=== PATIENT | female | born 1950 | race Caucasian/White ===

== ENCOUNTER 2018-10-11 00:32 | Emergency (ER) | payer MEDICARE, OTHER ==
[~2018-10-11] VITALS: Ht 157.5 cm; Wt 85.0 kg
[~2018-10-11 00:32] MED LIST: ADVAIR DISK1 INH; ADVAIR HF1; ADVAIR HF1 IN; ASPIRIN81 MG PO; B-COMPLEX-C PO; CELEBREX200 MG PO; COQ-10100 MG PO; D32000 UNI1 PO; FISH OIL1000 MG PO; FLOVENT HFA110 MCG IN; FLUTICASONE50 MCG NAB; GABAPENTIN100 MG PO; LIPITOR10 MG PO; LOPRESSOR25 MG PO; LUTEIN20 MG PO; MAGNESIUM-OX400 MG PO; METOPROL TAR25 M1 PO; OSCAL 500/1 TAB PO; PROBIOTIC1 TAB PO; RHINOCORT; SALAGEN7.5 MG PO; VICOPROFEN PO; VITAMIN B-121000 MCG PO
[2018-10-11] MEDS ORDERED: MAG OXIDE400 MG PO (01:08)
[2018-10-11] MEDS ORDERED: ADVAIR HF2 IN (01:14)
[2018-10-11] MEDS ORDERED: PERCOCET 5/325M1 TAB PO (02:23)
[2018-10-11 03:21] VITALS: BP 174/74
== END 2018-10-11 03:16 | disposition home or self-care (01) ==
LOC: ED 00:32
PROC: 2W3BXYZ Immobilization of Left Upper Arm using Other Device (ICD-10-PCS; principal; 2018-10-11)
DX: S42.022A Displaced fracture of shaft of left clavicle, initial encounter for closed fracture (principal); I10 Essential (primary) hypertension; W18.30XA Fall on same level, unspecified, initial encounter; Y92.009 Unspecified place in unspecified non-institutional (private) residence as the place of occurrence of the external cause

== ENCOUNTER → 2018-10-28 | Outpatient (REF) | payer MEDICARE, OTHER ==
[~2018-10-28] MED LIST changes: +ADVAIR HF2 IN; +MAG OXIDE400 MG PO; +PERCOCET 5/325M1 TAB PO
[2018-10-28 09:46] LABS: HEMATOCRIT 40.9 % (37.0-47.0); HEMOGLOBIN 13.5 g/dl (12.0-16.0); IMMATURE GRANULOCYTES 0.2 % (0.0-5.0); MEAN CELL VOLUME 94.5 fL CALC (80.0-100.0); MEAN CORPUSCULAR HGB 31.2 pG CALC (26.0-32.0); NEUT# 1.94 thou/uL (2.00-7.15); RED BLOOD COUNT 4.33 mill/uL (4.20-5.60); RED CELL DISTRI WIDTH 13.2 % (11.5-15.5)
[2018-10-28 11:54] LABS: ALBUMIN 3.9 g/dL (3.2-5.0); ALKALINE PHOSPHATASE 72 u/l (38-126); ANION GAP 15 (6-22 (CALC)); BILIRUBIN, TOTAL 0.6 mg/dL (0.0-1.4); BUN 20 mg/dL (8-23); BUN/CREATININE RATIO 26 (12-20 (CALC)); CALCULATED LDLCHOLESTEROL 99 mg/dL (62-129 (CALC)); CARBON DIOXIDE 29 mmol/l (22-30); CHLORIDE 100 mmol/l (95-108); CHOLESTEROL HDL RATIO 5.3 (<4.4 (CALC)); CREATININE 0.8 mg/dL (0.5-1.0); GFR > 60 ML/MIN (>=60 (CALC)); GFR FOR AFR.AMER. > 60 ML/MIN (>=60 (CALC)); HDL CHOLESTEROL 28 mg/dL (>=40); POTASSIUM 4.5 mmol/l (3.5-5.1); SGOT/AST 27 u/l (9-36); SODIUM 140 mmol/l (137-146); TOTAL CHOLESTEROL 150 mg/dl (0-199); TOTAL PROTEIN 8.6 g/dL (6.3-8.2); TOTAL TRIGLYCERIDES 116 mg/dl (30-149); VLDL CHOLESTROL 23 mg/dl (1-41 (CALC))
[2018-10-28 12:22] LABS: TSH, 3RD GENERATION 1.46 uIU/mL (0.47 - 4.68)
== END | disposition home or self-care (01) ==
LOC: LAB 08:01
PROVIDERS: ATTEND Nurse Practitioner Family
DX: E78.49 Other hyperlipidemia (principal); I10 Essential (primary) hypertension

== ENCOUNTER 2019-07-05 12:25 | Emergency (ER) | payer MEDICARE, OTHER ==
[~2019-07-05] VITALS: Ht 157.5 cm; Wt 86.0 kg
[2019-07-05 14:34] VITALS: BP 142/83
== END 2019-07-05 14:43 | disposition home or self-care (01) ==
LOC: ED 12:25
PROC: 0HQ1XZZ Repair Face Skin, External Approach (ICD-10-PCS; principal; 2019-07-05)
DX: S01.81XA Laceration without foreign body of other part of head, initial encounter (principal); W01.198A Fall on same level from slipping, tripping and stumbling with subsequent striking against other object, initial encounter; Y92.009 Unspecified place in unspecified non-institutional (private) residence as the place of occurrence of the external cause

== ENCOUNTER 2019-09-24 11:57 | Observation (INO) | payer MEDICARE, OTHER ==
[~2019-09-24] VITALS: Ht 157.5 cm; Wt 75.9 kg
--- NOTE | 2019-09-24 11:57 | NUR ---
ARRIVES ALERT ADN ORIENTED IN NO DISTRESS WITH EMS VIA STRETCHER .
[2019-09-24 13:16] LABS: HEMATOCRIT 40.3 % (37.0-47.0); HEMOGLOBIN 13.4 g/dl (12.0-16.0); IMMATURE GRANULOCYTES 0.3 % (0.0-5.0); MEAN CORPUSCULAR HGB 30.6 pG CALC (26.0-32.0); MEAN CORPUSCULAR HGB CONC 33.3 g/L CALC (32.0-36.0); NEUT# 1.47 thou/uL (2.00-7.15); RED BLOOD COUNT 4.38 mill/uL (4.20-5.60); RED CELL DISTRI WIDTH 13.7 % (11.5-15.5)
[2019-09-24 13:20] LABS: ACT PARTIAL THROMBO TIME 30.2 SECONDS (20.0-32.5); INTERNATIONAL NORMALIZED RATIO 1.1 RATIO (0.7-1.3); PROTHROMBIN TIME 11.2 SECONDS (9.0-12.5)
--- NOTE | 2019-09-24 13:20 | NUR ---
PT ALERT AND RESPONSIVE IN NO DISTRESS WITH NO DEFICITS.PT TO CT VIA STRETCHER
--- NOTE | 2019-09-24 13:56 | NUR ---
PT RESTING ON STRETCHER AWAITING RESULTS. WARM BLANKET GIVEN
[2019-09-24 14:07] LABS: ALBUMIN 3.8 g/dL (3.2-5.0); ALKALINE PHOSPHATASE 62 u/l (38-126); ANION GAP 14 (6-22 (CALC)); BILIRUBIN, TOTAL 0.8 mg/dL (0.0-1.4); BUN 16 mg/dL (8-23); BUN/CREATININE RATIO 21 (12-20 (CALC)); CARBON DIOXIDE 26 mmol/l (22-30); CHLORIDE 102 mmol/l (95-108); CREATININE 0.8 mg/dL (0.5-1.0); GFR > 60 ML/MIN (>=60 (CALC)); GFR FOR AFR.AMER. > 60 ML/MIN (>=60 (CALC)); POTASSIUM 4.5 mmol/l (3.5-5.1); SGOT/AST 35 u/l (9-36); SODIUM 137 mmol/l (137-146); TOTAL PROTEIN 8.9 g/dL (6.3-8.2)
--- NOTE | 2019-09-24 14:42 | NUR ---
ORTHOSTATIC BP 58 167/95 LYING 65 168/96 SITTING 68 175/92 STANDING PT REPORTS NO COMPLAINTS OF DIZZINESS OR WEAKNESS
--- NOTE | 2019-09-24 15:36 | NUR ---
PT REPORTS FEELING "A BIT DIZZY AND SLIGHT HEADACHE" PT BELIEVES THIS IS DUE TO NOT EATING ALL DAY. PT GIVEN WATER AND JUICE. INSTRUCTED TO CALL WITH ANY CHANGES. NEURO EXAM REMAINS UNCHANGED.
--- NOTE | 2019-09-24 16:28 | NUR ---
PT REPORTS CONTINUED SLIGHT HEADACHE BUT FEELING BETTER AFTER JUICE. LIGHTS DIMMED FOR PATIENT COMFORT
--- NOTE | 2019-09-24 16:40 | NUR ---
PT ASSISTED TO BEDSIDE COMMODE. VOIDED URING OBTAINED. DAUGHTER EXPRESSED FRUSTRATION IN THAT THERE WOULD NOT BE IMMEDIATE RESULTS. PT HAD EXPRESSED NO DESIRE TO VOID PRIOR TO THIS TIME. DAUGHTER REASSURED THAT THE URINE WOULD BE WALKED IMMEDIATELY TO THE LAB
[2019-09-24 16:45] LABS: URINE BILIRUBIN - DIPSTICK NEGATIVE (NEGATIVE); URINE BLOOD DIPSTICK NEGATIVE (NEGATIVE); URINE COLOR YELLOW; URINE GLUCOSE - DIPSTICK NEGATIVE (NEGATIVE); URINE KETONE NEGATIVE (NEGATIVE); URINE LEUK ESTERASE NEGATIVE (NEGATIVE); URINE NITRITE - DIPSTICK NEGATIVE (Negative); URINE PH 5.5 (4.5-8.0); URINE PROTEIN - DIPSTICK TRACE mg/dL (NEG-TRACE); URINE UROBILINOGEN - DIPSTICK 0.2 E.U./dL (0.2)
--- NOTE | 2019-09-24 17:30 | NUR ---
PT MEDICATED FOR ELEVATED BP.
--- NOTE | 2019-09-24 17:40 | NUR ---
PT AWAITING ADMISSION. NO COMPLAINTS AT THIS TIME
--- NOTE | 2019-09-24 18:15 | NUR ---
PT ASSISTED TO BEDSIDE COMMODE. RETURNED TO STRETCHER. MONITORS APPLIED.
[2019-09-24] MEDS ORDERED: HYDROCHLOROT25 MG PO (18:19)
[2019-09-24] MEDS ORDERED: VALSARTAN160 MG PO (18:21)
[2019-09-24] MEDS ORDERED: BYSTOLIC20 MG PO (18:22)
[2019-09-24] MEDS ORDERED: TRELEGY ELLIPTA1 AER IN (18:22)
[2019-09-24] MEDS ORDERED: FAMOTIDINE20 M1 PO (18:23)
--- NOTE | 2019-09-24 18:26 | NUR ---
PAYTON REC COMPLETED OVER THE PHONE WITH PTS DAUGHTER MAGGIE
--- NOTE | 2019-09-24 18:32 | NUR ---
BP NOTED TO BE ELEVATED. BP REPEATED AND CONTINUES TO BE ELEVATED. HOSPITALIST INVESTIGATION LIEUTENANT PAGED
--- NOTE | 2019-09-24 19:40 | NUR ---
REPORT CALLED TO CAPRICE FENTON. MED SURG.
--- NOTE | 2019-09-24 19:41 | NUR ---
PT UP TO BEDSIDE COMMODE WITH ASSISTANCE
--- NOTE | 2019-09-24 19:46 | NUR ---
SP NOTED TO BE ELEVATED. MANUAL BP TAKEN 207/100. PAGE PLACED TO HOSPITALIST FIELD LOGISTICS COORDINATOR
--- NOTE | 2019-09-24 19:48 | NUR ---
PT. TAKEN TO [facility], NO C/O.
[2019-09-24 20:15] VITALS: BP 161/90
[2019-09-24 20:20] VITALS: BP 211/81
[2019-09-24 20:25] VITALS: BP 180/94
--- NOTE | 2019-09-24 20:43 | NUR ---
- PT. ARRIVED TO THE FLOOR VIA STRETCHER ACCOMPANIED BY ER NURSE. PT. WITH UNSTEADY GAIT AND VOIDED IN BSC AND ASSISTED BACK INTO BED. ORIENTED TO CALL LIGHT, ROOM, AND POC; VERBALIZES UNDERSTANDING. ADMISSION ASSESSMENT COMPLETED. TELEMETRY BOX IN PLACE. IV SITE PATENT AND ORDERED IVF HUNG.ORTHOSTATIC B/P AND PULSE OBTAINED; PT. B/P ELEVATED AND MEDICATED WITH SCHEDULED COZAAR; WILL CONTINUE TO MONITOR. PT. IS INSTRUCTED TO CALL FOR EVERY OOB NEEDS AND NOT TO GET OOB ALONE AND VERBALIZES UNDERSTANDING. BED ALARM SET FOR SAFETY. C/O PARRY AND MEDICATED WITH ORDERED TYLENOL.
[2019-09-25] VITALS (9 sets, daily range): BP systolic 120–194; BP diastolic 64–98
--- NOTE | 2019-09-25 00:08 | NUR ---
B/P 180/86 AND MEDICATED WITH ORDERED PRN CLONIDINE, WILL REASSESS.
--- NOTE | 2019-09-25 02:08 | NUR ---
RESTING IN BED WITH EYES CLOSED; RESP. EVEN AND UNLABORED.
--- NOTE | 2019-09-25 05:51 | NUR ---
RESTING IN BED WITH EYES CLOSED; RESP. EVEN AND UNLABORED. CALL LIGHT IS IN REACH.
--- NOTE | 2019-09-25 08:00 | NUR ---
PT RESTING IN BED, NO SIGNS OF DISTRESS NOTED, RESP EVEN AND UNLABORED. PT ALERT AND ORIENTED X3, DISCUSSED POC, PT AGREES TO DO ORTHOSTATIC BP'S. PT TOLERATED WELL. ASSESSMENT COMPLETED, CALL LIGHT IN REACH,CONTINUE TO MONITOR.
--- NOTE | 2019-09-25 10:30 | NUR ---
PT RESTING IN BED, BP ELEVATED DISCUSSED CLONIDINE, DAUGHTER AT BEDSIDE UPSET REGARDING PT'S BP STATES SHE NEEDS TO BE DISCHARGED AND NEEDS TO TAKE HER OWN NON-GENERIC BP MEDS AT HOME. DISCUSSED POC WITH DAUGHTER INFORMED HER THAT IF SHE WANTED HER TO LEAVE RIGHT NOW THE PT COULD SIGN AMA, PT DECLINED STATES SHE WANTS TO STAY AND WAIT FOR THE DR AND THAT DAUGHTER NEEDS TO HAVE A SEAT. PT TOOK CLONIDINE WILL RECHECK BP IN 1 HR. CALL LIGHT IN REACH,CONTINUE TO MONITOR.
--- NOTE | 2019-09-25 12:37 | NUR ---
BP REMAINS ELEVATED, RN AT BEDSIDE GIVING IV APRESOLINE
--- NOTE | 2019-09-25 14:50 | NUR ---
AND SADA AT BEDSIDE TO DISCUSS POC
[2019-09-25] MEDS ORDERED: DOXYCYCL HYC100 MG PO (15:03)
--- NOTE | 2019-09-25 15:27 | NUR ---
Discharge instructions given. Patient verbalizes understanding of same. Discharged in stable condition via Wheelchair to Home with family. All belongings sent with pt.
== END 2019-09-25 15:28 | disposition home or self-care (01) ==
LOC: ED 11:57 → ED-I 14:13 → ED 14:13 → ED-I 17:14 → ED 17:38 → MS2 17:39
PROVIDERS: Emergency Medicine; ADMIT Internal Medicine; ATTEND Internal Medicine
DX: R55 Syncope and collapse (principal); I16.0 Hypertensive urgency; J32.9 Chronic sinusitis, unspecified; I10 Essential (primary) hypertension; I69.931 Monoplegia of upper limb following unspecified cerebrovascular disease affecting right dominant side; M35.00 Sjogren syndrome, unspecified; I25.2 Old myocardial infarction
CPT/HCPCS: G0378

== ENCOUNTER 2021-08-24 13:47 | Emergency (ER) | payer MEDICARE, OTHER ==
[~2021-08-24] VITALS: Ht 157.5 cm; Wt 72.0 kg
[~2021-08-24 13:47] MED LIST changes: +BYSTOLIC20 MG PO; +DOXYCYCL HYC100 MG PO; +FAMOTIDINE20 M1 PO; +HYDROCHLOROT25 MG PO; +TRELEGY ELLIPTA1 AER IN; +VALSARTAN160 MG PO
[2021-08-24 15:09] LABS: HEMATOCRIT 40.1 % (37.0-47.0); HEMOGLOBIN 12.9 g/dl (12.0-16.0); IMMATURE GRANULOCYTES 0.2 % (0.0-5.0); MEAN CORPUSCULAR HGB 32.8 pG CALC (26.0-32.0); MEAN CORPUSCULAR HGB CONC 32.2 g/dL CAL (32.0-36.0); NEUT# 3.64 thou/uL (2.00-7.15); RED BLOOD COUNT 3.93 mill/uL (4.20-5.60)
[2021-08-24 15:32] LABS: ALBUMIN 3.5 g/dL (3.2-5.0); ALKALINE PHOSPHATASE 72 u/l (38-126); BUN 18 mg/dL (8-23); BUN/CREATININE RATIO 18 (12-20 (CALC)); CHLORIDE 109 mmol/l (95-108); GFR 55 ML/MIN (>=60 (CALC)); GFR FOR AFR.AMER. > 60 ML/MIN (>=60 (CALC)); POTASSIUM 4.5 mmol/l (3.5-5.1); SGOT/AST 29 u/l (9-36); SODIUM 138 mmol/l (137-146); TOTAL PROTEIN 8.7 g/dL (6.3-8.2)
[2021-08-24 15:34] LABS: ANION GAP 14 (6-22 (CALC)); BILIRUBIN, TOTAL 0.9 mg/dL (0.0-1.4); CARBON DIOXIDE 20 mmol/l (22-30)
[2021-08-24 15:37] LABS: URINE BILIRUBIN - DIPSTICK NEGATIVE (NEGATIVE); URINE BLOOD DIPSTICK NEGATIVE (NEGATIVE); URINE COLOR YELLOW; URINE GLUCOSE - DIPSTICK NEGATIVE (NEGATIVE); URINE KETONE NEGATIVE (NEGATIVE); URINE LEUK ESTERASE TRACE (NEGATIVE); URINE PROTEIN - DIPSTICK NEGATIVE (NEG-TRACE); URINE UROBILINOGEN - DIPSTICK 0.2 E.U./dL (0.2)
[2021-08-24 15:38] LABS: URINE NITRITE - DIPSTICK NEGATIVE (Negative)
[2021-08-24 15:42] LABS: LIPASE 185 u/l (23-300); MYOGLOBIN 110 ng/mL (0 - 62)
[2021-08-24 16:00] VITALS: BP 128/88
[2021-08-24 17:19] LABS: INTERNATIONAL NORMALIZED RATIO 1.1 RATIO (0.7-1.3); PROTHROMBIN TIME 11.3 SECONDS (9.0-12.5)
== END 2021-08-24 18:20 | disposition home or self-care (01) ==
LOC: ED 13:47
PROVIDERS: Family Medicine
DX: R55 Syncope and collapse (principal); I10 Essential (primary) hypertension; I25.2 Old myocardial infarction; Z86.73 Personal history of transient ischemic attack (TIA), and cerebral infarction without residual deficits
CPT/HCPCS: Q9967

== ENCOUNTER 2021-09-15 10:14 | Emergency (ER) | payer MEDICARE, OTHER ==
[~2021-09-15] VITALS: Ht 157.5 cm; Wt 70.0 kg
[2021-09-15 10:48] VITALS: BP 111/59
== END 2021-09-15 10:48 | disposition home or self-care (01) ==
LOC: ED 10:14
DX: R04.0 Epistaxis (principal); M35.00 Sjogren syndrome, unspecified; I10 Essential (primary) hypertension; I25.2 Old myocardial infarction; Z86.73 Personal history of transient ischemic attack (TIA), and cerebral infarction without residual deficits

== ENCOUNTER 2022-06-18 17:20 | Emergency (ER) | payer MEDICARE, OTHER ==
[2022-06-22] MEDS ORDERED: ASPIRIN81 MG PO (05:20)
== END 2022-06-18 18:43 | disposition left against medical advice (07) ==
LOC: ED 17:20 → LWOBS 18:43
DX: Z53.21 Procedure and treatment not carried out due to patient leaving prior to being seen by health care provider (principal)

== ENCOUNTER 2022-07-31 16:34 | Observation (INO) | payer MEDICARE, OTHER ==
[2022-07-31] VITALS (9 sets, daily range): BP systolic 106–135; BP diastolic 68–84
[~2022-07-31] VITALS: Ht 157.5 cm; Wt 57.1 kg
--- NOTE | 2022-07-31 16:50 | NUR ---
PT TO ROOM VIA EMS.
[2022-07-31] MEDS ORDERED: NORVASC5 M1 PO (17:25)
[2022-07-31 18:57] LABS: HEMATOCRIT 38.7 % (37.0-47.0); HEMOGLOBIN 13.4 g/dl (12.0-16.0); MEAN CELL VOLUME 93.9 fL CALC (80.0-100.0); MEAN CORPUSCULAR HGB 32.5 pG CALC (26.0-32.0); MEAN CORPUSCULAR HGB CONC 34.6 g/dL CAL (32.0-36.0); NEUT# 3.35 thou/uL (2.00-7.15); RED BLOOD COUNT 4.12 mill/uL (4.20-5.60); RED CELL DISTRI WIDTH 14.4 % (11.5-15.5)
[2022-07-31 19:06] LABS: ALBUMIN 3.6 g/dL (3.2-5.0); ALKALINE PHOSPHATASE 95 u/l (38-126); ANION GAP 12 (6-22 (CALC)); BILIRUBIN, TOTAL 0.9 mg/dL (0.0-1.4); BUN 30 mg/dL (8-23); BUN/CREATININE RATIO 36 (12-20 (CALC)); CARBON DIOXIDE 24 mmol/l (22-30); CHLORIDE 103 mmol/l (95-108); CREATININE 0.8 mg/dL (0.5-1.0); GFR FOR AFR.AMER. > 60 ML/MIN (>=60 (CALC)); GFR OTHER RACES > 60 ML/MIN (>=60 (CALC)); POTASSIUM 3.9 mmol/l (3.5-5.1); SGOT/AST 56 u/l (9-36); SODIUM 136 mmol/l (137-146); TOTAL PROTEIN 8.2 g/dL (6.3-8.2)
[2022-07-31 19:08] LABS: INTERNATIONAL NORMALIZED RATIO 1.1 RATIO (0.7-1.3); PROTHROMBIN TIME 10.8 SECONDS (9.0-12.5)
--- NOTE | 2022-07-31 19:15 | NUR ---
ASSUMED CARE OF PT. PER DAY RN NO IV AT THIS TIME. PT COMFORTABLE. NAD.
[2022-07-31 19:25] LABS: URINE BILIRUBIN - DIPSTICK NEGATIVE (NEGATIVE); URINE BLOOD DIPSTICK TRACE-INTACT (NEGATIVE); URINE COLOR YELLOW; URINE GLUCOSE - DIPSTICK NEGATIVE (NEGATIVE); URINE KETONE NEGATIVE (NEGATIVE); URINE PROTEIN - DIPSTICK NEGATIVE (NEG-TRACE); URINE SPECIFIC GRAVITY 1.025; URINE UROBILINOGEN - DIPSTICK 0.2 E.U./dL (0.2)
[2022-07-31 19:31] LABS: URINE LEUK ESTERASE SMALL (NEGATIVE); URINE NITRITE - DIPSTICK NEGATIVE (Negative)
[2022-07-31 19:37] LABS: URINE RBC 0-2 RBC/hpf (0-5); URINE SQUAMOUS EPITHELIAL CELL FEW EPI/hpf (0-FEW)
--- NOTE | 2022-07-31 20:15 | NUR ---
PT TRANSFERRED TO [facility]
--- NOTE | 2022-07-31 21:10 | NUR ---
PT WAS BROUGHT UP BY ER IN STRETCHER. PT WAS A X2 ASSIST TO AMBULATE FROM STRETCHER TO BED, GAIT UNSTEADY. PT IS A/OX3. 22G IV IN THE RFA APPEARS HEALTHY AND HAS BLOOD RETURN. PT IS ON OXYGEN FOR COMFORT AT NIGHTS. NASAL CANNULA IN PLACE ON 2L. REPORT RECIEVED FROM ER NURSE AT BEDSIDE. ASSESSMENT COMPLETED ON PT AND RASH NOTED ON LEFT HIP UNDER STOMACH. PT DENIES ANY PAIN OR ITCHINESS. SAFETY PRECAUTIONS PUT INTO PLACE AND CALL LIGHT WITHIN REACH.
--- NOTE | 2022-08-01 00:30 | NUR ---
PT NOTED LAYING IN BED SLEEPING WITH NASAL CANNULA IN PLACE ON 2L O2. NO S/S OF DISTRESS OR DISCOMFORT. CALL LIGHT WITHIN REACH AND SAFETY PRECAUTIONS IN PLACE.
[2022-08-01 03:56] VITALS: BP 126/75
[2022-08-01 04:00] VITALS: BP 126/75
--- NOTE | 2022-08-01 04:15 | NUR ---
PT NOTED IN BED LYING SUPINE. NASAL CANULA IN PLACE WITH 2L O2 FOR COMFORT ON. PT REQUESTED TO USE BSC. PT IS X2 ASSIST STAND AND PIVOT TO COMODE. PT VOIDED 200 AND ASSISTED BACK INTO BED. SAFETY PRECAUTIONS IN PLACE AND CALL LIGHT WITHIN REACH.
[2022-08-01 05:57] LABS: HEMATOCRIT 36.6 % (37.0-47.0); HEMOGLOBIN 12.6 g/dl (12.0-16.0); MEAN CELL VOLUME 95.8 fL CALC (80.0-100.0); MEAN CORPUSCULAR HGB CONC 34.4 g/dL CAL (32.0-36.0); NEUT# 1.63 thou/uL (2.00-7.15); RED BLOOD COUNT 3.82 mill/uL (4.20-5.60); RED CELL DISTRI WIDTH 14.4 % (11.5-15.5)
[2022-08-01 06:24] LABS: ALBUMIN 3.3 g/dL (3.2-5.0); ALKALINE PHOSPHATASE 81 u/l (38-126); ANION GAP 14 (6-22 (CALC)); BILIRUBIN, TOTAL 0.8 mg/dL (0.0-1.4); BUN 24 mg/dL (8-23); BUN/CREATININE RATIO 39 (12-20 (CALC)); CARBON DIOXIDE 22 mmol/l (22-30); CHLORIDE 108 mmol/l (95-108); CREATININE 0.6 mg/dL (0.5-1.0); GFR FOR AFR.AMER. > 60 ML/MIN (>=60 (CALC)); GFR OTHER RACES > 60 ML/MIN (>=60 (CALC)); MAGNESIUM 1.5 mg/dL (1.6-2.3); POTASSIUM 3.7 mmol/l (3.5-5.1); SGOT/AST 51 u/l (9-36); SODIUM 140 mmol/l (137-146); TOTAL PROTEIN 7.7 g/dL (6.3-8.2)
[2022-08-01 06:50] VITALS: BP 117/76
--- NOTE | 2022-08-01 08:03 | NUR ---
0700 BEDSIDE REPORT RECEIVED FROM KALEIGH. PT RESTING IN BED WITH EYES CLOSED, EASILY AROUSED WHEN CALLED BY NAME. RESPIRATIONS EVEN AND UNLABORED. NO SIGNS OF DISTRESS NOTED. PT UPDATED ON PLAN OF CARE AND VERBALIZES UNDERSTANDING. DIRECTOR INDUSTRIAL MUSEUM IN PLACE AND MONITORED PER ED. OXYGEN THERAPY AT 2L NC. NO COMPLAINTS VOICED AT THIS TIME. ALL PERSONAL ITEMS WITHIN REACH. SAFETY PRECAUTIONS IN PLACE.
[2022-08-01 10:40] VITALS: BP 130/72
[2022-08-01 14:10] VITALS: BP 118/61
--- NOTE | 2022-08-01 15:24 | NUR ---
1520 IV REMOVED WITH TIP INTACT, NO [place]HAM RELATED COMPLICATIONS NOTED. TELEMETRY REMOVED. DC INSTRUCTIONS EXPLAINED TO PT, PT VERBALIZES UNDERSTANDING AND DENIES QUESTIONS. EDUCATION ON SYNCOPE PROVIDED TO PATIENT. DAUGHTER AT BEDSIDE TO TAKE PATIENT HOME. PT DISCHARGED HOME WITH ALL PERSONAL BELONGINGS VIA WC @ 2323.
== END 2022-08-01 15:20 | disposition home health service (06) ==
LOC: ED 16:34 → ED-I 19:12 → ED 19:23 → MS2 19:24
PROVIDERS: Emergency Medicine; ADMIT Internal Medicine; ATTEND Internal Medicine
DX: E86.0 Dehydration (principal); I10 Essential (primary) hypertension; J44.9 Chronic obstructive pulmonary disease, unspecified; I25.2 Old myocardial infarction; M35.00 Sjogren syndrome, unspecified; I69.931 Monoplegia of upper limb following unspecified cerebrovascular disease affecting right dominant side; Z99.81 Dependence on supplemental oxygen
CPT/HCPCS: J3475

== ENCOUNTER 2022-10-15 20:38 | Emergency (ER) | payer MEDICARE, OTHER ==
[~2022-10-15] VITALS: Ht 157.5 cm; Wt 55.0 kg
[~2022-10-15 20:38] MED LIST changes: +NORVASC5 M1 PO
[2022-10-15 20:44] VITALS: BP 129/81
[2022-10-15 20:45] VITALS: BP 113/71
[2022-10-15 21:28] LABS: BASO% 0.3 % (0-3); EOS% 1.4 % (0-8); HEMOGLOBIN 14.1 g/dl (12.0-16.0); MEAN CELL VOLUME 101.2 fL CALC (80.0-100.0); MEAN CORPUSCULAR HGB 33.5 pG CALC (26.0-32.0); MEAN CORPUSCULAR HGB CONC 33.1 g/dL CAL (32.0-36.0); MONO% 9.9 % (2-13); NEUT# 1.82 thou/uL (2.00-7.15); NEUT% 51.4 % (42-76); RED BLOOD COUNT 4.21 mill/uL (4.20-5.60); RED CELL DISTRI WIDTH 13.1 % (11.5-15.5)
[2022-10-15 21:31] VITALS: BP 107/60
[2022-10-15 21:34] LABS: HEMATOCRIT 42.6 % (37.0-47.0)
[2022-10-15 21:41] LABS: ALBUMIN 3.8 g/dL (3.2-5.0); ALKALINE PHOSPHATASE 84 u/l (38-126); ANION GAP 13 (6-22 (CALC)); BUN 15 mg/dL (8-23); BUN/CREATININE RATIO 20 (12-20 (CALC)); CARBON DIOXIDE 19 mmol/l (22-30); CHLORIDE 108 mmol/l (95-108); CREATININE 0.7 mg/dL (0.5-1.0); GFR FOR AFR.AMER. > 60 ML/MIN (>=60 (CALC)); GFR OTHER RACES > 60 ML/MIN (>=60 (CALC)); POTASSIUM 3.9 mmol/l (3.5-5.1); SGOT/AST 43 u/l (9-36); SODIUM 136 mmol/l (137-146); TOTAL PROTEIN 8.5 g/dL (6.3-8.2)
[2022-10-15 21:47] LABS: BILIRUBIN, TOTAL 1.4 mg/dL (0.02-1.3)
[2022-10-15] MEDS ORDERED: PAXLOVID PO (21:57)
[2022-10-15 22:00] VITALS: BP 107/65
[2022-10-15 22:20] VITALS: BP 107/65
[2022-10-16] MEDS ORDERED: PAXLOVID PO ×2 (10:41→15:27)
== END 2022-10-15 22:33 | disposition home or self-care (01) ==
LOC: ED 20:38
PROVIDERS: Emergency Medicine
DX: U07.1 COVID-19 (principal); J44.1 Chronic obstructive pulmonary disease with (acute) exacerbation; I10 Essential (primary) hypertension; I25.2 Old myocardial infarction; M35.00 Sjogren syndrome, unspecified; Z99.81 Dependence on supplemental oxygen; Z87.440 Personal history of urinary (tract) infections; Z87.01 Personal history of pneumonia (recurrent); Z86.73 Personal history of transient ischemic attack (TIA), and cerebral infarction without residual deficits

== ENCOUNTER 2022-12-16 08:48 | Day surgery (SDC) | payer MEDICARE, OTHER ==
[~2022-12-16] VITALS: Ht 157.5 cm; Wt 53.5 kg
[~2022-12-16 08:48] MED LIST changes: +PAXLOVID PO
[2022-12-16 11:59] VITALS: BP 123/72
== END 2022-12-16 12:07 | disposition home or self-care (01) ==
LOC: ENDO 08:48 → ORM 09:45 → ENDO 12:07 → ORM 12:45
PROVIDERS: ATTEND Internal Medicine Gastroenterology
PROC: 0D738ZZ Dilation of Lower Esophagus, Via Natural or Artificial Opening Endoscopic (ICD-10-PCS; principal; 2022-12-16)
PROC: 0DB38ZX Excision of Lower Esophagus, Via Natural or Artificial Opening Endoscopic, Diagnostic (ICD-10-PCS; 2022-12-16)
PROC: 0DB78ZX Excision of Stomach, Pylorus, Via Natural or Artificial Opening Endoscopic, Diagnostic (ICD-10-PCS; 2022-12-16)
PROC: 0DB28ZX Excision of Middle Esophagus, Via Natural or Artificial Opening Endoscopic, Diagnostic (ICD-10-PCS; 2022-12-16)
PROC: 3E0G8GC Introduction of Other Therapeutic Substance into Upper GI, Via Natural or Artificial Opening Endoscopic (ICD-10-PCS; 2022-12-16)
DX: K22.2 Esophageal obstruction (principal); K29.70 Gastritis, unspecified, without bleeding; K20.90 Esophagitis, unspecified without bleeding; M35.00 Sjogren syndrome, unspecified; I10 Essential (primary) hypertension; E78.5 Hyperlipidemia, unspecified; Z80.0 Family history of malignant neoplasm of digestive organs
CPT/HCPCS: J0585

== ENCOUNTER 2023-02-10 12:03 | Emergency (ER) | payer MEDICARE, OTHER ==
[~2023-02-10] VITALS: Ht 157.5 cm; Wt 58.1 kg
[2023-02-10] VITALS (14 sets, daily range): BP systolic 96–184; BP diastolic 78–113
[2023-02-10 13:26] LABS: BASO% 0.2 % (0-3); EOS% 1.2 % (0-8); HEMATOCRIT 43.6 % (37.0-47.0); HEMOGLOBIN 14.2 g/dl (12.0-16.0); IMMATURE GRANULOCYTES 0.2 % (0.0-5.0); LYMPH% 29.9 % (15-41); MEAN CELL VOLUME 100.2 fL CALC (80.0-100.0); MEAN CORPUSCULAR HGB 32.6 pG CALC (26.0-32.0); MEAN CORPUSCULAR HGB CONC 32.6 g/dL CAL (32.0-36.0); MONO% 8.1 % (2-13); NEUT# 2.44 thou/uL (2.00-7.15); NEUT% 60.4 % (42-76); RED BLOOD COUNT 4.35 mill/uL (4.20-5.60); RED CELL DISTRI WIDTH 12.8 % (11.5-15.5)
[2023-02-10 13:32] LABS: ALBUMIN 3.7 g/dL (3.2-5.0); ALKALINE PHOSPHATASE 86 u/l (38-126); ANION GAP 13 (6-22 (CALC)); BUN 23 mg/dL (8-23); BUN/CREATININE RATIO 28 (12-20 (CALC)); CARBON DIOXIDE 25 mmol/l (22-30); CHLORIDE 106 mmol/l (95-108); CREATININE 0.8 mg/dL (0.5-1.0); GFR FOR AFR.AMER. > 60 ML/MIN (>=60 (CALC)); GFR OTHER RACES > 60 ML/MIN (>=60 (CALC)); POTASSIUM 3.9 mmol/l (3.5-5.1); SGOT/AST 39 u/l (9-36); SODIUM 139 mmol/l (137-146); TOTAL PROTEIN 7.8 g/dL (6.3-8.2)
[2023-02-10 13:33] LABS: BILIRUBIN, TOTAL 1.3 mg/dL (0.02-1.3)
== END 2023-02-10 16:21 | disposition home or self-care (01) ==
LOC: ED 12:03
PROVIDERS: Family Medicine
DX: R55 Syncope and collapse (principal); M25.571 Pain in right ankle and joints of right foot; I10 Essential (primary) hypertension; J44.9 Chronic obstructive pulmonary disease, unspecified; M35.00 Sjogren syndrome, unspecified; I25.2 Old myocardial infarction; Z86.73 Personal history of transient ischemic attack (TIA), and cerebral infarction without residual deficits

== ENCOUNTER 2023-02-16 03:05 | Emergency (ER) | payer MEDICARE, OTHER ==
[~2023-02-16] VITALS: Ht 157.5 cm; Wt 55.0 kg
[2023-02-16] VITALS (8 sets, daily range): BP systolic 127–172; BP diastolic 99–108
[2023-02-16 04:24] LABS: BASO% 0.5 % (0-3); EOS% 1.9 % (0-8); HEMATOCRIT 46.2 % (37.0-47.0); LYMPH% 35.3 % (15-41); MEAN CELL VOLUME 100.4 fL CALC (80.0-100.0); MEAN CORPUSCULAR HGB 32.6 pG CALC (26.0-32.0); MEAN CORPUSCULAR HGB CONC 32.5 g/dL CAL (32.0-36.0); MONO% 8.9 % (2-13); NEUT# 2.22 thou/uL (2.00-7.15); NEUT% 53.4 % (42-76); RED BLOOD COUNT 4.6 mill/uL (4.20-5.60)
[2023-02-16 04:43] LABS: ANION GAP 16 (6-22 (CALC)); BUN 23 mg/dL (8-23); BUN/CREATININE RATIO 29 (12-20 (CALC)); CARBON DIOXIDE 22 mmol/l (22-30); CHLORIDE 108 mmol/l (95-108); CREATININE 0.8 mg/dL (0.5-1.0); GFR FOR AFR.AMER. > 60 ML/MIN (>=60 (CALC)); GFR OTHER RACES > 60 ML/MIN (>=60 (CALC)); POTASSIUM 3.5 mmol/l (3.5-5.1); SODIUM 142 mmol/l (137-146)
[2023-02-16 04:44] LABS: ACT PARTIAL THROMBO TIME 28.3 SECONDS (20.0-32.5); INTERNATIONAL NORMALIZED RATIO 1.2 RATIO (0.7-1.3); PROTHROMBIN TIME 12.1 SECONDS (9.0-12.5)
== END 2023-02-16 06:12 | disposition home or self-care (01) ==
LOC: ED 03:05
PROVIDERS: Family Medicine
DX: R04.0 Epistaxis (principal); I10 Essential (primary) hypertension; J44.9 Chronic obstructive pulmonary disease, unspecified; M35.00 Sjogren syndrome, unspecified; I25.2 Old myocardial infarction; Z86.73 Personal history of transient ischemic attack (TIA), and cerebral infarction without residual deficits; Z99.81 Dependence on supplemental oxygen

== ENCOUNTER 2023-02-17 15:33 | Observation (INO) | payer MEDICARE, OTHER ==
[~2023-02-17] VITALS: Ht 157.5 cm; Wt 59.2 kg
[2023-02-17] VITALS (13 sets, daily range): BP systolic 139–162; BP diastolic 94–128
[2023-02-17 15:55] LABS: BASO% 0.3 % (0-3); EOS% 1.7 % (0-8); HEMATOCRIT 47.4 % (37.0-47.0); HEMOGLOBIN 15.4 g/dl (12.0-16.0); LYMPH% 36.8 % (15-41); MEAN CELL VOLUME 100.4 fL CALC (80.0-100.0); MEAN CORPUSCULAR HGB 32.6 pG CALC (26.0-32.0); MEAN CORPUSCULAR HGB CONC 32.5 g/dL CAL (32.0-36.0); NEUT# 3.04 thou/uL (2.00-7.15); NEUT% 53.2 % (42-76); RED BLOOD COUNT 4.72 mill/uL (4.20-5.60); RED CELL DISTRI WIDTH 13.1 % (11.5-15.5)
[2023-02-17 16:07] LABS: ALKALINE PHOSPHATASE 72 u/l (38-126); ANION GAP 15 (6-22 (CALC)); BILIRUBIN, TOTAL 2.1 mg/dL (0.02-1.3); BUN 26 mg/dL (8-23); BUN/CREATININE RATIO 28 (12-20 (CALC)); CARBON DIOXIDE 22 mmol/l (22-30); CHLORIDE 107 mmol/l (95-108); CREATININE 0.9 mg/dL (0.5-1.0); GFR FOR AFR.AMER. > 60 ML/MIN (>=60 (CALC)); GFR OTHER RACES > 60 ML/MIN (>=60 (CALC)); POTASSIUM 4.3 mmol/l (3.5-5.1); SGOT/AST 43 u/l (9-36); SODIUM 140 mmol/l (137-146); TOTAL PROTEIN 8.7 g/dL (6.3-8.2)
[2023-02-17 16:11] LABS: INTERNATIONAL NORMALIZED RATIO 1.3 RATIO (0.7-1.3); PROTHROMBIN TIME 12.5 SECONDS (9.0-12.5)
[2023-02-18] VITALS (9 sets, daily range): BP systolic 119–159; BP diastolic 76–111
[2023-02-18 04:53] LABS: HEMATOCRIT 41.7 % (37.0-47.0); HEMOGLOBIN 13.7 g/dl (12.0-16.0); MEAN CELL VOLUME 98.3 fL CALC (80.0-100.0); MEAN CORPUSCULAR HGB 32.3 pG CALC (26.0-32.0); MEAN CORPUSCULAR HGB CONC 32.9 g/dL CAL (32.0-36.0); RED BLOOD COUNT 4.24 mill/uL (4.20-5.60); RED CELL DISTRI WIDTH 13.1 % (11.5-15.5)
[2023-02-18 05:12] LABS: ALKALINE PHOSPHATASE 59 u/l (38-126); BILIRUBIN, TOTAL 1.5 mg/dL (0.02-1.3); BUN 26 mg/dL (8-23); BUN/CREATININE RATIO 32 (12-20 (CALC)); CARBON DIOXIDE 21 mmol/l (22-30); CHLORIDE 106 mmol/l (95-108); CREATININE 0.8 mg/dL (0.5-1.0); GFR FOR AFR.AMER. > 60 ML/MIN (>=60 (CALC)); GFR OTHER RACES > 60 ML/MIN (>=60 (CALC)); MAGNESIUM 1.2 mg/dL (1.6-2.3); SGOT/AST 34 u/l (9-36); SODIUM 138 mmol/l (137-146); TOTAL PROTEIN 7.1 g/dL (6.3-8.2)
[2023-02-18 05:14] LABS: ALBUMIN 3.1 g/dL (3.2-5.0); ANION GAP 14 (6-22 (CALC)); POTASSIUM 3.4 mmol/l (3.5-5.1)
[2023-02-19 00:10] VITALS: BP 151/103
[2023-02-19 04:46] VITALS: BP 151/103
[2023-02-19 05:41] LABS: HEMATOCRIT 44.8 % (37.0-47.0); HEMOGLOBIN 14.5 g/dl (12.0-16.0); MEAN CELL VOLUME 100.2 fL CALC (80.0-100.0); MEAN CORPUSCULAR HGB 32.4 pG CALC (26.0-32.0); MEAN CORPUSCULAR HGB CONC 32.4 g/dL CAL (32.0-36.0); RED BLOOD COUNT 4.47 mill/uL (4.20-5.60); RED CELL DISTRI WIDTH 13.9 % (11.5-15.5)
[2023-02-19 06:09] LABS: ALBUMIN 3.5 g/dL (3.2-5.0); ALKALINE PHOSPHATASE 66 u/l (38-126); ANION GAP 15 (6-22 (CALC)); BILIRUBIN, TOTAL 1.9 mg/dL (0.02-1.3); BUN 28 mg/dL (8-23); BUN/CREATININE RATIO 31 (12-20 (CALC)); CARBON DIOXIDE 19 mmol/l (22-30); CHLORIDE 106 mmol/l (95-108); CREATININE 0.9 mg/dL (0.5-1.0); GFR FOR AFR.AMER. > 60 ML/MIN (>=60 (CALC)); GFR OTHER RACES > 60 ML/MIN (>=60 (CALC)); POTASSIUM 3.7 mmol/l (3.5-5.1); SGOT/AST 42 u/l (9-36); SODIUM 137 mmol/l (137-146); TOTAL PROTEIN 7.8 g/dL (6.3-8.2)
[2023-02-19 06:11] LABS: MAGNESIUM 1.8 mg/dL (1.6-2.3)
[2023-02-19 06:40] VITALS: BP 163/103
[2023-02-19 06:42] VITALS: BP 158/102
[2023-02-19 11:22] VITALS: BP 156/90
[2023-02-19] MEDS ORDERED: LASIX 20 MG TAB20 MG PO (13:08)
[2023-02-19] MEDS ORDERED: VIBRAMYCIN100 M2 PO (13:08)
[2023-02-19 15:49] VITALS: BP 154/92
== END 2023-02-19 16:38 | disposition home health service (06) ==
LOC: ED 15:33 → MS2 18:51
PROVIDERS: Nurse Practitioner; ADMIT Internal Medicine; ATTEND Internal Medicine
PROC: 2Y41X5Z Packing of Nasal Region using Packing Material (ICD-10-PCS; principal; 2023-02-17)
DX: I11.0 Hypertensive heart disease with heart failure (principal); I50.9 Heart failure, unspecified; J18.9 Pneumonia, unspecified organism; J44.0 Chronic obstructive pulmonary disease with (acute) lower respiratory infection; R04.0 Epistaxis; J96.10 Chronic respiratory failure, unspecified whether with hypoxia or hypercapnia; I25.2 Old myocardial infarction; Z99.81 Dependence on supplemental oxygen; M35.00 Sjogren syndrome, unspecified; I69.931 Monoplegia of upper limb following unspecified cerebrovascular disease affecting right dominant side; Z20.822 Contact with and (suspected) exposure to COVID-19
CPT/HCPCS: J3475

== ENCOUNTER 2023-05-05 02:53 | Inpatient (IN) | payer MEDICARE, OTHER ==
[~2023-05-05] VITALS: Ht 157.5 cm; Wt 63.0 kg
[2023-05-05] VITALS (17 sets, daily range): BP systolic 124–162; BP diastolic 79–116
[~2023-05-05 02:53] MED LIST changes: +LASIX 20 MG TAB20 MG PO; +VIBRAMYCIN100 M2 PO
--- NOTE | 2023-05-05 02:55 | NUR ---
PT TO ROOM VIA EMS. ON O2 AT 4 LPM NC. TRIAGED AT BEDSIDE. PT HOPING TO BE PLACED IN A REHAB BECAUSE SHE IS VERY WEAK SINCE HER LAST ADMISSION.
[2023-05-05 03:52] LABS: BASO% 0.2 % (0-3); EOS% 0.2 % (0-8); HEMATOCRIT 44.3 % (37.0-47.0); HEMOGLOBIN 14.6 g/dl (12.0-16.0); IMMATURE GRANULOCYTES 0.2 % (0.0-5.0); LYMPH% 24.7 % (15-41); MEAN CELL VOLUME 96.9 fL CALC (80.0-100.0); MEAN CORPUSCULAR HGB 31.9 pG CALC (26.0-32.0); NEUT# 2.91 thou/uL (2.00-7.15); NEUT% 67.7 % (42-76); RED BLOOD COUNT 4.57 mill/uL (4.20-5.60); RED CELL DISTRI WIDTH 16.6 % (11.5-15.5)
--- NOTE | 2023-05-05 04:00 | NUR ---
PLACED ON O2/GIVEN TREATMENT. LABS DRAWN. IV STARTED.
[2023-05-05 04:01] LABS: ALBUMIN 3.6 g/dL (3.2-5.0); BILIRUBIN, TOTAL 2.6 mg/dL (0.02-1.3); CREATININE 1.1 mg/dL (0.5-1.0); MAGNESIUM 1.4 mg/dL (1.6-2.3); POTASSIUM 3.8 mmol/l (3.5-5.1); TOTAL PROTEIN 7.8 g/dL (6.3-8.2)
--- NOTE | 2023-05-05 04:30 | NUR ---
PT MEDICATED. PURE WICK PLACED. PT RESTING. NAD.
[2023-05-05 04:32] LABS: TSH, 3RD GENERATION 4.95 uIU/mL (0.47 - 4.68)
--- NOTE | 2023-05-05 06:30 | NUR ---
PURE WICK NOT FUNCTIONING. LINENS CHANGED AND FRESH WICK APPLIED. PT RESTING. MORE BLANKETS APPLIED. VSS.
--- NOTE | 2023-05-05 07:00 | NUR ---
REPORT TO ON COMING STAFF. PT BEING ADMITTED. AWAITING ADMISSION BED.
--- NOTE | 2023-05-05 08:15 | NUR ---
contacted med surg to give report, at this time the nurse was unavailable. SBAR was faxed at [phone]
--- NOTE | 2023-05-05 08:40 | NUR ---
report called to liz on med surg.
--- NOTE | 2023-05-05 08:52 | NUR ---
PT ARRIVED VIA A STRETCHER WITH PIANO REGULATOR AD SAFETY AND SKILL BASED PAY MANAGER PT UNABLE TO STAND. MAX ASSIST TO BED. ORIENTATED PT TO ROOM AND CALL TEJEDA SYSTEM. ADMISSON ASSESSMENT COMPLETED. O2 IN PLACE VIA NC T 2L. O2 DEPENDENT AT HOME. FALL/SAFTEY PRECAUTION IN PLACE. CALL LIGHT WITHIN REACH
--- NOTE | 2023-05-05 09:04 | NUR ---
patient transferred to med surg via stretcher. transfered from stretcher to bed. patient hooked back up to suction for purewick and 2 L NC for 02. belongings with patient including purse and belongings bag with clothes.
--- NOTE | 2023-05-05 12:15 | NUR ---
PT EATING LUNCH. STATES NO NEEDS AT THIS TIME. FALL/SAFTEY PRECAUTION IN PLACE. CALL LIGHT WITHIN REACH.
[2023-05-05 13:50] LABS: URINE BILIRUBIN - DIPSTICK Negative (NEGATIVE); URINE BLOOD DIPSTICK Negative (NEGATIVE); URINE GLUCOSE - DIPSTICK Negative (NEGATIVE); URINE KETONE Negative (NEGATIVE); URINE LEUK ESTERASE Trace (NEGATIVE); URINE NITRITE - DIPSTICK Negative (Negative); URINE PROTEIN - DIPSTICK Negative (NEG-TRACE); URINE SPECIFIC GRAVITY 1.015; URINE UROBILINOGEN - DIPSTICK 0.2 E.U./dL (0.2)
--- NOTE | 2023-05-05 14:07 | NUR ---
PT IN ECHO
[2023-05-05 14:09] LABS: URINE COLOR Yellow
--- NOTE | 2023-05-05 18:13 | NUR ---
PT RESTING IN BED SLEEPING, BREAHHING EVEN AND UNLABORED. FALL/SAFTEY PRECAUTION IN PLACE.CALL LIGHT WITHIN REACH
--- NOTE | 2023-05-05 18:55 | NUR ---
REPORT RECEIVED FROM Sharron SANDHU RN
--- NOTE | 2023-05-05 20:00 | NUR ---
PATIENT RESTING IN BED. NO APPARENT DISTRESS NOTED. NASAL CANNULA IN PLACE AT 2L. UPDATED ON PLAN OF CARE. CALL LIGHT AND BEDSIDE TABLE WITHIN REACH.
[2023-05-06] VITALS (8 sets, daily range): BP systolic 133–175; BP diastolic 87–115
--- NOTE | 2023-05-06 | NUR ---
PATIENT RESTING, NO APPARENT DISTRESS NOTED. RESPIRATIONS EVEN AND UNLABORED, RISE AND FALL OF CHEST NOTED. CALL LIGHT AND BEDSIDE TABLE WITHIN REACH.
--- NOTE | 2023-05-06 05:06 | NUR ---
LAB AT BEDSIDE OBTAINING MORNING LABS.
--- NOTE | 2023-05-06 08:00 | NUR ---
PT IN BED WITH HOB UP, EATING BREAKFAST. PT IS ALERT AND ORIENTED X 3, PT HAS NO C/O PAIN AT THIS TIME. PT HAS TELE ON WITH ALL LEADS ATTACHED. PT ON O2 @ 2 LITERS VIA NC. PT LUNGS CLEAR AND BREATHING IS NO LABORED. PT HAS ABD SOFT EITH ACTIVE BS. PT HAS PUREWICK IN PLACE DRAINING DARK, YELLOW URINE. IV SITE TO RH CLEAN AND INTACT, SL. TRACE EDEMA TO BLE. PT HAS CALL LIGHT WITHIN REACH AND SAFETY MEASURES IN PLACE AT THIS TIME.
[2023-05-06 08:45] LABS: HEMATOCRIT 45.5 % (37.0-47.0); HEMOGLOBIN 15.3 g/dl (12.0-16.0); IMMATURE GRANULOCYTES 0.2 % (0.0-5.0); LYMPH% 24.3 % (15-41); MEAN CELL VOLUME 96.4 fL CALC (80.0-100.0); MEAN CORPUSCULAR HGB 32.4 pG CALC (26.0-32.0); MEAN CORPUSCULAR HGB CONC 33.6 g/dL CAL (32.0-36.0); MONO% 3.5 % (2-13); NEUT# 3.47 thou/uL (2.00-7.15); RED BLOOD COUNT 4.72 mill/uL (4.20-5.60); RED CELL DISTRI WIDTH 16.8 % (11.5-15.5)
[2023-05-06 09:14] LABS: ALBUMIN 3.6 g/dL (3.2-5.0); BILIRUBIN, TOTAL 1.9 mg/dL (0.02-1.3); CREATININE 1.1 mg/dL (0.5-1.0); MAGNESIUM 1.8 mg/dL (1.6-2.3); POTASSIUM 4.2 mmol/l (3.5-5.1); TOTAL PROTEIN 8.1 g/dL (6.3-8.2)
--- NOTE | 2023-05-06 12:00 | NUR ---
PT IN BED WITH HOB UP EATING LUNCH. PT HAS NO C/O PAIN AT THIS TIME. PT CONTINUES TO WEAR O2 @ 2 LITERS VIA NC, BREATHING NON LABORED. PT HAS CALL LIGHT WITHIN REACH AND SAFETY MEASURES IN PLACE AT THIS TIME.
--- NOTE | 2023-05-06 16:00 | NUR ---
PT IN BED, HELPED PT REPOSITION TO HIGH FOWLERS. PT HAS NO C/O PAIN AT THIS TIME. PT HAS CALL LIGHT WITHIN REACH AND ALL SAFETY MEASURES IN PLACE.
--- NOTE | 2023-05-06 19:07 | NUR ---
REPORT RECEIVED FROM Norma SPENCER LPN
[2023-05-07] VITALS (8 sets, daily range): BP systolic 131–147; BP diastolic 71–102
--- NOTE | 2023-05-07 | NUR ---
PATIENT RESTING IN BED, NO APPARENT DITRESS NOTED. RESPIRATIONS EVEN AND UNLABORED. RISE AND FALL OF CHEST NOTED. CALL LIGHT AND BEDSIDE TBALE WITHIN REACH. BED ALARM ON FOR PATIENT SAFETY.
--- NOTE | 2023-05-07 05:11 | NUR ---
LAB AT BEDSIDE OBTAINING MORNING LABS.
--- NOTE | 2023-05-07 05:30 | NUR ---
NURSE NOTIFIED OF PATIENT OXYGEN.
--- NOTE | 2023-05-07 07:10 | NUR ---
PT RESTING IN LOW FOWLERS POSITION PT A/OX3 PT HEART RHYHTM ON TELE RESPIRATIONS ON ROOM AIR. IV SITE NOTED. PT DENIES ADDITIONAL NEEDS AT THET TIME ALLSAFETY PRCAUTIONS IN PLACE.
--- NOTE | 2023-05-07 08:00 | NUR ---
PT STATED USES OXYGEN 2LNC AT HOME.PT IS CURRENTLY USING NEEDED.
[2023-05-07 11:16] LABS: HEMATOCRIT 44.4 % (37.0-47.0); HEMOGLOBIN 14.9 g/dl (12.0-16.0); IMMATURE GRANULOCYTES 0.7 % (0.0-5.0); LYMPH% 14.4 % (15-41); MEAN CELL VOLUME 96.1 fL CALC (80.0-100.0); MEAN CORPUSCULAR HGB 32.3 pG CALC (26.0-32.0); MEAN CORPUSCULAR HGB CONC 33.6 g/dL CAL (32.0-36.0); MONO% 3.6 % (2-13); NEUT# 5.68 thou/uL (2.00-7.15); NEUT% 81.3 % (42-76); RED BLOOD COUNT 4.62 mill/uL (4.20-5.60); RED CELL DISTRI WIDTH 16.9 % (11.5-15.5)
[2023-05-07 11:34] LABS: ALBUMIN 3.5 g/dL (3.2-5.0); ALKALINE PHOSPHATASE 65 u/l (38-126); ANION GAP 12 (6-22 (CALC)); BILIRUBIN, TOTAL 1.9 mg/dL (0.02-1.3); BUN 35 mg/dL (8-23); BUN/CREATININE RATIO 34 (12-20 (CALC)); CARBON DIOXIDE 24 mmol/l (22-30); CHLORIDE 103 mmol/l (95-108); GFR FOR AFR.AMER. > 60 ML/MIN (>=60 (CALC)); GFR OTHER RACES 54 ML/MIN (>=60 (CALC)); MAGNESIUM 1.6 mg/dL (1.6-2.3); POTASSIUM 4.7 mmol/l (3.5-5.1); SGOT/AST 45 u/l (9-36); SODIUM 135 mmol/l (137-146); TOTAL PROTEIN 7.5 g/dL (6.3-8.2)
--- NOTE | 2023-05-07 12:12 | NUR ---
PT RESTING IN SEMI FOWLERSPOSITION PT DENIES ADDITIONAL NEEDS AT THE TIME ALL SAFETY PRECAUTIONS IN PLACE.
--- NOTE | 2023-05-07 16:01 | NUR ---
PT RESTING IN SEMIFOWLERS POSITION PT DENIES ADDITIONAL NEEDS AT THE TIME ALL SAFETY PRECAUTIONS IN PLACE WITH CALLLIGHT IN REACH.
--- NOTE | 2023-05-07 17:25 | NUR ---
PT STATED WOULD PREFER TO TAKE MILK OF MAG TOMORROW MORNING RATHER THAN WHEN OFFERED TODAY.
--- NOTE | 2023-05-07 19:10 | NUR ---
PATIENT RESTING IN BED. ALERT AND ABLE TO MAKE NEEDS KNOWN. ASSESSMENT COMPLETE. SHORTNESS OF BREATH ON EXERTION. PATIENT SPITS IN [place] ALOT. DENIES ANY PAIN. MAX ASSIST. BED REMAINS IN LOW POSITION. CALL TEJEDA IN REACH.
--- NOTE | 2023-05-07 23:30 | NUR ---
PATIENT REMAINS RESTING IN BED. NO DISTRESS NOTED. NO COMPLAINTS VOICED. BED REMAINS IN LOW POSITION. CALL TEJEDA IN REACH.
[2023-05-08] VITALS (7 sets, daily range): BP systolic 128–154; BP diastolic 86–96
--- NOTE | 2023-05-08 04:20 | NUR ---
PATIENT REMAINS RESTING IN BED. NO COMPLAINTS VOICED AT THIS TIME. BED REMAINS IN LOW POSITION. CALL TEJEDA IN REACH.
--- NOTE | 2023-05-08 07:21 | NUR ---
PT RESTING IN SEMI FOWLERS POSITION PT A/OX3 PT HEART RHYHTM ON TELE. RESPIRATIONS ON 2LNC.PT IV SITE NOTED. PT DENEIS ADDITIONAL NEEDS AT THE TIME ALL SAFETY PRECAUTIONS IN PLACE WITH CALL LIGHT IN REACH.
--- NOTE | 2023-05-08 10:53 | NUR ---
PT PROVIDED WITH I.S. PT ABLE TO DEMONSTRATE USE .
--- NOTE | 2023-05-08 12:14 | NUR ---
SPEECH THERAPIST EVALUATED PT. DIET TO REMAIN THE SAME AT THE TIME.
--- NOTE | 2023-05-08 15:36 | NUR ---
LAB CALLED VERIFY IF HAVE DRAWN BLOOD ON PT .LAB STATED WILL TRY AGAIN UNABLE TO PT BEING A HARD STICK.
--- NOTE | 2023-05-08 16:01 | NUR ---
PT RESTING IN PLACE PURE WICK IN PLACE WITH SUCTION NOTED. PT DENIES ADDITIONAL NEEDS AT THE TIME.
[2023-05-08 17:59] LABS: BASO% 0.1 % (0-3); HEMATOCRIT 46.1 % (37.0-47.0); IMMATURE GRANULOCYTES 0.3 % (0.0-5.0); LYMPH% 14.2 % (15-41); MEAN CELL VOLUME 99.6 fL CALC (80.0-100.0); MEAN CORPUSCULAR HGB 32.4 pG CALC (26.0-32.0); MEAN CORPUSCULAR HGB CONC 32.5 g/dL CAL (32.0-36.0); MONO% 3.6 % (2-13); NEUT# 5.72 thou/uL (2.00-7.15); NEUT% 81.8 % (42-76); RED BLOOD COUNT 4.63 mill/uL (4.20-5.60); RED CELL DISTRI WIDTH 17.3 % (11.5-15.5)
[2023-05-08 18:19] LABS: ALBUMIN 3.8 g/dL (3.2-5.0); BILIRUBIN, TOTAL 2.4 mg/dL (0.02-1.3); CREATININE 1.1 mg/dL (0.5-1.0); MAGNESIUM 1.9 mg/dL (1.6-2.3); POTASSIUM 5.1 mmol/l (3.5-5.1); TOTAL PROTEIN 8.1 g/dL (6.3-8.2)
--- NOTE | 2023-05-08 19:10 | NUR ---
PATIENT RESTING IN BED. NO DISTRESS NOTED. NO COMPLAINTS OF PAIN. ASSESSMENT COMPLETE. REMAINS WEARING OXYGEN AT 2L VIA NC. BED REMAINS IN LOW POSITION. CALL TEJEDA IN REACH.
--- NOTE | 2023-05-08 19:47 | NUR ---
SPOKE WITH SPANISH SPEAKING BABYSITTER PROVIDER ABOUT PATIENTS 2100 MEDS. OKAY TO GIVE ALL.
[2023-05-09] VITALS (7 sets, daily range): BP systolic 139–162; BP diastolic 89–98
--- NOTE | 2023-05-09 00:50 | NUR ---
PATIENT REMAINS RESTING IN BED WITH EYES CLOSED. NO COMPLAINTS VOICED. NO DISTRESS NOTED.
--- NOTE | 2023-05-09 03:34 | NUR ---
PATIENT REMAINS RESTING IN BED. NO DISTRESS NOTED. NO COMPLAINTS. BED REMAINS IN LOW POSITION. CALL TEJEDA IN REACH.
[2023-05-09 05:10] LABS: HEMATOCRIT 44.1 % (37.0-47.0); HEMOGLOBIN 14.7 g/dl (12.0-16.0); IMMATURE GRANULOCYTES 0.4 % (0.0-5.0); LYMPH% 17.4 % (15-41); MEAN CELL VOLUME 96.5 fL CALC (80.0-100.0); MEAN CORPUSCULAR HGB 32.2 pG CALC (26.0-32.0); MEAN CORPUSCULAR HGB CONC 33.3 g/dL CAL (32.0-36.0); MONO% 4.3 % (2-13); NEUT# 4.02 thou/uL (2.00-7.15); NEUT% 77.9 % (42-76); RED BLOOD COUNT 4.57 mill/uL (4.20-5.60); RED CELL DISTRI WIDTH 16.8 % (11.5-15.5)
[2023-05-09 05:25] LABS: ALBUMIN 3.1 g/dL (3.2-5.0); BILIRUBIN, TOTAL 1.7 mg/dL (0.02-1.3); CREATININE 1.2 mg/dL (0.5-1.0)
[2023-05-09 05:33] LABS: POTASSIUM 3.4 mmol/l (3.5-5.1)
--- NOTE | 2023-05-09 06:39 | NUR ---
CALLED RT. PATIENT REQUEST BREATHING TX DUE TO SOB. PATIENT DOES TEND TO WORK HERSELF UP WHEN SHE COUGHS TRYING TO SPIT INTO TISSUES. OXYGEN SAT CHECKED WITH A READING OF 94%. PATIENT REMAINS ON OXYGEN 2L NC.
--- NOTE | 2023-05-09 07:15 | NUR ---
REFEIVED REPORT FROM NIGHTSHIFT NURSE. PT NOTED SITTING UP HIGH FOWELRS IN BED, WATCHING TV AND STATES "WAITING FOR BREAKFAST" PT IS A/OX3, NC IN PLACE ON 2L, TELE MONITOR IN PLACE. EDUCATED PT ON MEAL TIMES AND PLAN OF CARE TODAY. PT DENIES ANY PAIN AT THIS TIME. CALL LIGHT WITHIN REACH AND SAFETY PRECAUTIONS IN PLACE.
[2023-05-09] MEDS ORDERED: IPRATROPIU0.5 MG/3 M NEB (10:54)
[2023-05-09] MEDS ORDERED: PREDNISONE10 MG PO (10:55)
[2023-05-09] MEDS ORDERED: LASIX 20 MG TAB20 MG PO (10:55)
--- NOTE | 2023-05-09 12:00 | NUR ---
REPORT IS RECEIVED FROM ALEXANDRO FENTON. PT ALERT AND ORIENTED X3. SHE IS OBSERVED RESTING IN THE BED FREE OF DISTRESS. PT IS EEDUCATED ABOUD MEDICATIONS AND NURSING PLAN FOR TODAY. PT REFER UNDERSTAND. SAFETY AND FALL PRECAUTIONS IN PLACE. CALL LIGHT WITHIN IN REACH.
--- NOTE | 2023-05-09 15:10 | NUR ---
Discharge instructions given. Patient verbalizes understanding of same. Discharged in stable condition via Wheelchair to *Other with staff. All belongings sent with pt.
--- NOTE | 2023-05-10 12:49 | NUR ---
FINAL SPUTUM RESULTS FAXED TO NURSE XAVIER AT [facility]. FAX # [phone].
== END 2023-05-09 15:10 | DRG 291 ==
LOC: ED 02:53 → ED-I 06:09 → ED 06:35 → MS2 06:36
PROVIDERS: Internal Medicine; Nurse Practitioner Family; ADMIT Student in an Organized Health Care Education/Training Program; ATTEND Student in an Organized Health Care Education/Training Program
DX: I11.0 Hypertensive heart disease with heart failure (principal); I50.23 Acute on chronic systolic (congestive) heart failure; J96.21 Acute and chronic respiratory failure with hypoxia; J44.1 Chronic obstructive pulmonary disease with (acute) exacerbation; B37.0 Candidal stomatitis; E83.42 Hypomagnesemia; M35.00 Sjogren syndrome, unspecified; I25.2 Old myocardial infarction; I69.931 Monoplegia of upper limb following unspecified cerebrovascular disease affecting right dominant side; R13.10 Dysphagia, unspecified; Z99.81 Dependence on supplemental oxygen
CPT/HCPCS: J1100; J1650; J3475

== ENCOUNTER 2023-08-22 19:55 | Emergency (ER) | payer MEDICARE, OTHER ==
[~2023-08-22] VITALS: Ht 157.5 cm; Wt 52.2 kg
[~2023-08-22 19:55] MED LIST changes: +IPRATROPIU0.5 MG/3 M NEB; +PREDNISONE10 MG PO
[2023-08-22 20:16] VITALS: BP 155/119
[2023-08-22 20:30] VITALS: BP 144/119
[2023-08-22 20:45] VITALS: BP 145/102
[2023-08-22 21:29] VITALS: BP 153/112
[2023-08-22 21:29] LABS: BASO% 0.2 % (0-3); EOS% 1.2 % (0-8); HEMATOCRIT 45.4 % (37.0-47.0); HEMOGLOBIN 15.3 g/dl (12.0-16.0); IMMATURE GRANULOCYTES 0.2 % (0.0-5.0); LYMPH% 33.5 % (15-41); MEAN CORPUSCULAR HGB 34.5 pG CALC (26.0-32.0); MEAN CORPUSCULAR HGB CONC 33.7 g/dL CAL (32.0-36.0); NEUT# 3.82 thou/uL (2.00-7.15); NEUT% 57.9 % (42-76); RED BLOOD COUNT 4.43 mill/uL (4.20-5.60); RED CELL DISTRI WIDTH 14.8 % (11.5-15.5)
[2023-08-22 21:30] VITALS: BP 154/112
[2023-08-22 21:30] LABS: MEAN CELL VOLUME 102.5 fL CALC (80.0-100.0)
[2023-08-22 21:34] LABS: BILIRUBIN, TOTAL 1.3 mg/dL (0.02-1.3); BUN 27 mg/dL (8-23); BUN/CREATININE RATIO 33 (12-20 (CALC)); CHLORIDE 108 mmol/l (95-108); CREATININE 0.8 mg/dL (0.5-1.0); GFR FOR AFR.AMER. > 60 ML/MIN (>=60 (CALC)); GFR OTHER RACES > 60 ML/MIN (>=60 (CALC)); MAGNESIUM 1.7 mg/dL (1.6-2.3); SGOT/AST 44 u/l (9-36); SODIUM 139 mmol/l (137-146); TOTAL PROTEIN 7.7 g/dL (6.3-8.2)
[2023-08-22 21:40] LABS: ACT PARTIAL THROMBO TIME 28.7 SECONDS (20.0-32.5); INTERNATIONAL NORMALIZED RATIO 1.3 RATIO (0.7-1.3); PROTHROMBIN TIME 12.3 SECONDS (9.0-12.5)
[2023-08-22 21:45] LABS: ALBUMIN 3.9 g/dL (3.2-5.0); ALKALINE PHOSPHATASE 101 u/l (38-126); ANION GAP 15 (6-22 (CALC)); CARBON DIOXIDE 20 mmol/l (22-30); POTASSIUM 4.3 mmol/l (3.5-5.1)
[2023-08-22 22:04] LABS: TSH, 3RD GENERATION 3.49 uIU/mL (0.47 - 4.68)
[2023-08-22 23:50] VITALS: BP 154/112
== END 2023-08-23 00:07 | disposition home or self-care (01) ==
LOC: ED 19:55
PROVIDERS: Family Medicine
DX: M16.12 Unilateral primary osteoarthritis, left hip (principal); R60.0 Localized edema; I50.9 Heart failure, unspecified; J44.9 Chronic obstructive pulmonary disease, unspecified; Z86.73 Personal history of transient ischemic attack (TIA), and cerebral infarction without residual deficits

== ENCOUNTER 2023-08-26 13:39 | Inpatient (IN) | payer MEDICARE, OTHER ==
[~2023-08-26] VITALS: Ht 157.5 cm; Wt 53.2 kg
--- NOTE | 2023-08-26 13:39 | NUR ---
PATIENT ARRIVED TO ER VIA EMS. PATIENT FROM THE [facility]. PATIENT AWAKE, ALERT AND STABLE. PATIENT ON CPAP ON ARRIVAL WITH EMS. PATIENT SWITCHED TO 2L NC WHEN PHYSICIAN ASSESSED PATIENT.
[2023-08-26 14:27] LABS: BASO% 0.2 % (0-3); HEMATOCRIT 46.3 % (37.0-47.0); HEMOGLOBIN 15.2 g/dl (12.0-16.0); IMMATURE GRANULOCYTES 0.2 % (0.0-5.0); LYMPH% 29.9 % (15-41); MEAN CORPUSCULAR HGB 34.5 pG CALC (26.0-32.0); MEAN CORPUSCULAR HGB CONC 32.8 g/dL CAL (32.0-36.0); MONO% 5.6 % (2-13); NEUT# 3.22 thou/uL (2.00-7.15); NEUT% 64.1 % (42-76); RED BLOOD COUNT 4.41 mill/uL (4.20-5.60)
--- NOTE | 2023-08-26 14:30 | NUR ---
pt no longer in resp distress, breathing even and unlabored, pt alert and oriented.
[2023-08-26 14:49] LABS: ALBUMIN 3.9 g/dL (3.2-5.0); ALKALINE PHOSPHATASE 77 u/l (38-126); ANION GAP 18 (6-22 (CALC)); BILIRUBIN, TOTAL 1.8 mg/dL (0.02-1.3); BUN 27 mg/dL (8-23); BUN/CREATININE RATIO 31 (12-20 (CALC)); CARBON DIOXIDE 18 mmol/l (22-30); CHLORIDE 106 mmol/l (95-108); CREATININE 0.9 mg/dL (0.5-1.0); GFR FOR AFR.AMER. > 60 ML/MIN (>=60 (CALC)); GFR OTHER RACES > 60 ML/MIN (>=60 (CALC)); POTASSIUM 4.4 mmol/l (3.5-5.1); SGOT/AST 52 u/l (9-36); SODIUM 138 mmol/l (137-146); TOTAL PROTEIN 7.9 g/dL (6.3-8.2)
--- NOTE | 2023-08-26 15:41 | NUR ---
pt alert and oriented, no apparent distress, warm blanket given
--- NOTE | 2023-08-26 16:46 | NUR ---
pt returned from ct, placed back on monitor.
--- NOTE | 2023-08-26 18:06 | NUR ---
report given to rosario rosenbaum transported on tele 18
--- NOTE | 2023-08-26 18:20 | NUR ---
[facility], no apparent distress.
--- NOTE | 2023-08-26 18:58 | NUR ---
PT ARRIVED TO [place] VIA BED. PT SOILED WITH URINE PT CHANGED CLEANED UP . PURE WICK PER PT REQUEST. PT SETTLED IN BED ALL SAFETY PRECAUTIONS IN PLACE WITH CALL LIGHT IN REACH.
--- NOTE | 2023-08-26 19:15 | NUR ---
PT RESTING NO DISTRESS NOTED ON EXAM. ASSESSMENT DONE AND ADMISSION. CALL LIGHT WITHIN REACH. PLAN OF CARE ONGOING.
[2023-08-26 20:01] VITALS: BP 126/79
--- NOTE | 2023-08-26 20:19 | NUR ---
PT STATED SHE HAS PAIN 4/10 BLE WANTING TYLENOL.
[2023-08-26 23:43] VITALS: BP 122/79
--- NOTE | 2023-08-27 00:19 | NUR ---
PT SLEEPING NO DISTRESS NOTED ON EXAM. NO NEW CONCERNS AT THIS TIME. CALL LIGHT WITHIN REACH. PLAN OF CARE ONGOING.
--- NOTE | 2023-08-27 04:00 | NUR ---
PT SLEEPING NO DISTRESS NOTED ON EXAM. CALL LIGHT WITHIN REACH. PLAN OF CARE ONGOING.
[2023-08-27 04:04] VITALS: BP 107/80
[2023-08-27 07:13] LABS: HEMOGLOBIN 14.9 g/dl (12.0-16.0); IMMATURE GRANULOCYTES 0.3 % (0.0-5.0); LYMPH% 32.5 % (15-41); MEAN CORPUSCULAR HGB 35.2 pG CALC (26.0-32.0); MEAN CORPUSCULAR HGB CONC 33.9 g/dL CAL (32.0-36.0); MONO% 3.2 % (2-13); NEUT# 2.43 thou/uL (2.00-7.15); RED BLOOD COUNT 4.23 mill/uL (4.20-5.60); RED CELL DISTRI WIDTH 14.7 % (11.5-15.5)
--- NOTE | 2023-08-27 07:13 | NUR ---
PT RESTING IN HIGH FOWLERS POSITION A/OX3 RESPIRATIONS ON 2LNC IV SITE NOTED. HEART MONITOR NOTED. PT DENIES ADDITIONAL NEEDS AT THE TIME ALL SAFETY PRECAUTIONS IN PLACE WITH CALL LIGHT IN REACH.
[2023-08-27 07:29] VITALS: BP 103/71
[2023-08-27 07:48] LABS: ALBUMIN 3.5 g/dL (3.2-5.0); ALKALINE PHOSPHATASE 86 u/l (38-126); BILIRUBIN, TOTAL 1.2 mg/dL (0.02-1.3); BUN 29 mg/dL (8-23); BUN/CREATININE RATIO 31 (12-20 (CALC)); CHLORIDE 109 mmol/l (95-108); CREATININE 0.9 mg/dL (0.5-1.0); GFR FOR AFR.AMER. > 60 ML/MIN (>=60 (CALC)); GFR OTHER RACES > 60 ML/MIN (>=60 (CALC)); MAGNESIUM 1.7 mg/dL (1.6-2.3); POTASSIUM 4.5 mmol/l (3.5-5.1); SGOT/AST 54 u/l (9-36); SODIUM 138 mmol/l (137-146); TOTAL PROTEIN 7.3 g/dL (6.3-8.2)
[2023-08-27 07:49] LABS: ANION GAP 20 (6-22 (CALC)); CARBON DIOXIDE 14 mmol/l (22-30)
[2023-08-27 08:06] LABS: CALCULATED LDLCHOLESTEROL 103 mg/dL (62-129 (CALC)); CHOLESTEROL HDL RATIO 6.5 (<4.4 (CALC)); HDL CHOLESTEROL 22 mg/dL (39.0-59.0); TOTAL CHOLESTEROL 141 mg/dl (0-199); TOTAL TRIGLYCERIDES 80 mg/dl (0-149); VLDL CHOLESTROL 16 mg/dl (0-48 (CALC))
--- NOTE | 2023-08-27 10:51 | NUR ---
CONTACTED DR BEAVER'S OFFICE IN REFERENCE TO A PHYSICIAN CONSULT. I SPOKE WITH EDUARDO AT 1051 HRS.
[2023-08-27 11:40] VITALS: BP 102/72
--- NOTE | 2023-08-27 12:06 | NUR ---
PT EATING LUNCH ATTHE TIME RT CALLED FOR BREATHING TREATMENT.NO ANSWER .
[2023-08-27 14:47] VITALS: BP 107/78
--- NOTE | 2023-08-27 16:04 | NUR ---
PT DENIES ADDITIONAL NEEDS AT THE TIME ALL SAFETY PRECAUTIONS IN PLACE WITH CALL LIGHT IN REACH.
--- NOTE | 2023-08-27 19:06 | NUR ---
REPORT RECEIVED FROM Sharron GRECO LPN
[2023-08-27 20:13] VITALS: BP 131/87
--- NOTE | 2023-08-28 | NUR ---
PATIENT CONFUSED AT THIS TIME. AWOKEN FROM DEEP SLEEP, ABLE TO REOIRIENT PATIENT.
[2023-08-28 00:17] VITALS: BP 130/87
[2023-08-28 02:47] LABS: URINE BILIRUBIN - DIPSTICK Negative (NEGATIVE); URINE BLOOD DIPSTICK Negative (NEGATIVE); URINE CLARITY Clear; URINE COLOR Yellow; URINE GLUCOSE - DIPSTICK Negative (NEGATIVE); URINE KETONE Negative (NEGATIVE); URINE LEUK ESTERASE Negative (Negative); URINE NITRITE - DIPSTICK Negative (Negative); URINE PH 5.5 (4.5-8.0); URINE PROTEIN - DIPSTICK Negative (NEG-TRACE); URINE SPECIFIC GRAVITY 1.015; URINE UROBILINOGEN - DIPSTICK 0.2 E.U./dL (0.2)
[2023-08-28 04:06] VITALS: BP 114/80
--- NOTE | 2023-08-28 04:40 | NUR ---
PATIENT REQUESTING HELP WITH HER TV REMOTE. TV TURNED ON PER REQUEST. CALL LIGHT AND BEDSIDE TABLE WITHIN REACH.
[2023-08-28 07:13] VITALS: BP 124/90
[2023-08-28 07:33] LABS: BASO% 0.1 % (0-3); HEMATOCRIT 42.9 % (37.0-47.0); HEMOGLOBIN 14.8 g/dl (12.0-16.0); IMMATURE GRANULOCYTES 0.3 % (0.0-5.0); LYMPH% 20.3 % (15-41); MEAN CELL VOLUME 102.4 fL CALC (80.0-100.0); MEAN CORPUSCULAR HGB 35.3 pG CALC (26.0-32.0); MEAN CORPUSCULAR HGB CONC 34.5 g/dL CAL (32.0-36.0); MONO% 7.3 % (2-13); NEUT# 5.54 thou/uL (2.00-7.15); RED BLOOD COUNT 4.19 mill/uL (4.20-5.60); RED CELL DISTRI WIDTH 14.6 % (11.5-15.5)
[2023-08-28 07:42] LABS: ALBUMIN 3.3 g/dL (3.2-5.0); ALKALINE PHOSPHATASE 55 u/l (38-126); BILIRUBIN, TOTAL 0.9 mg/dL (0.02-1.3); BUN 32 mg/dL (8-23); BUN/CREATININE RATIO 33 (12-20 (CALC)); CHLORIDE 106 mmol/l (95-108); GFR FOR AFR.AMER. > 60 ML/MIN (>=60 (CALC)); GFR OTHER RACES 54 ML/MIN (>=60 (CALC)); MAGNESIUM 1.6 mg/dL (1.6-2.3); POTASSIUM 3.8 mmol/l (3.5-5.1); SGOT/AST 40 u/l (9-36); SODIUM 138 mmol/l (137-146); TOTAL PROTEIN 6.6 g/dL (6.3-8.2)
[2023-08-28 07:44] LABS: ALBUMIN 3.4 g/dL (3.2-5.0); BUN 31 mg/dL (8-23); CHLORIDE 104 mmol/l (95-108); GFR FOR AFR.AMER. > 60 ML/MIN (>=60 (CALC)); GFR OTHER RACES 54 ML/MIN (>=60 (CALC)); POTASSIUM 3.7 mmol/l (3.5-5.1); SODIUM 138 mmol/l (137-146)
[2023-08-28 07:47] LABS: ANION GAP 15 (6-22 (CALC)); CARBON DIOXIDE 21 mmol/l (22-30)
[2023-08-28 07:48] LABS: CARBON DIOXIDE 19 mmol/l (22-30)
--- NOTE | 2023-08-28 08:00 | NUR ---
Bedside report received from off going nurse. Patient awake in bed. Respirations even and unlabored on O2 @ 2 LPM via NC. Denies pain or discomfort. Call light within reach.
[2023-08-28 10:47] VITALS: BP 105/81
--- NOTE | 2023-08-28 15:12 | NUR ---
Patient currently off the floor for imaging.
[2023-08-28 16:51] VITALS: BP 140/100
--- NOTE | 2023-08-28 18:03 | NUR ---
Patient in room eating supper at this time. Able to feed self. Denies pain or discomfort at this time. Respirations even and unlabored. Call light within reach.
[2023-08-28 19:20] VITALS: BP 149/93
--- NOTE | 2023-08-28 20:00 | NUR ---
PT RESTING NO DISTRESS NOTED ON EXAM. ASSESSMENT DONE. PT REPORTS NO PAIN. PT STATED FEELING BETTER. PT ON RA VS WNL. PT ENCOURAGED TO REPOSITION IN BED. IV SITE CHECKED AND FLUSHED SL. CALL LIGHT WITHIN REACH. PLAN OF CARE ONGOING.
--- NOTE | 2023-08-29 | NUR ---
PT SLEEPING NO DISTRESS NOTED ON EXAM. CALL LIGHT WITHIN REACH. PLAN OF CARE ONGOING.
[2023-08-29 03:49] VITALS: BP 119/80
--- NOTE | 2023-08-29 04:33 | NUR ---
PT SLEEPING NO DISTRESS NOTED ON EXAM. CALL LIGHT WITHIN REACH. PLAN OF CARE ONGOING.
[2023-08-29 04:59] VITALS: BP 119/80
[2023-08-29 06:39] LABS: BASO% 0.2 % (0-3); HEMATOCRIT 41.6 % (37.0-47.0); HEMOGLOBIN 14.1 g/dl (12.0-16.0); IMMATURE GRANULOCYTES 0.3 % (0.0-5.0); LYMPH% 13.7 % (15-41); MEAN CELL VOLUME 103.5 fL CALC (80.0-100.0); MEAN CORPUSCULAR HGB 35.1 pG CALC (26.0-32.0); MEAN CORPUSCULAR HGB CONC 33.9 g/dL CAL (32.0-36.0); MONO% 5.4 % (2-13); NEUT# 5.32 thou/uL (2.00-7.15); NEUT% 80.4 % (42-76); RED BLOOD COUNT 4.02 mill/uL (4.20-5.60); RED CELL DISTRI WIDTH 14.7 % (11.5-15.5)
[2023-08-29 07:12] LABS: ALBUMIN 3.6 g/dL (3.2-5.0); ALKALINE PHOSPHATASE 69 u/l (38-126); ANION GAP 15 (6-22 (CALC)); BILIRUBIN, TOTAL 1.1 mg/dL (0.02-1.3); BUN 30 mg/dL (8-23); BUN/CREATININE RATIO 37 (12-20 (CALC)); CARBON DIOXIDE 22 mmol/l (22-30); CHLORIDE 105 mmol/l (95-108); CREATININE 0.8 mg/dL (0.5-1.0); GFR FOR AFR.AMER. > 60 ML/MIN (>=60 (CALC)); GFR OTHER RACES > 60 ML/MIN (>=60 (CALC)); MAGNESIUM 1.7 mg/dL (1.6-2.3); POTASSIUM 4.2 mmol/l (3.5-5.1); SGOT/AST 47 u/l (9-36); SODIUM 138 mmol/l (137-146); TOTAL PROTEIN 6.9 g/dL (6.3-8.2)
[2023-08-29 08:07] VITALS: BP 138/94
[2023-08-29 11:34] VITALS: BP 126/90
== END 2023-08-29 15:55 | DRG 292 ==
LOC: ED 13:39 → ED-I 17:00 → ED 17:42 → MS2 17:43
PROVIDERS: Family Medicine; Internal Medicine Nephrology; ADMIT Student in an Organized Health Care Education/Training Program; ATTEND Student in an Organized Health Care Education/Training Program
DX: I11.0 Hypertensive heart disease with heart failure (principal); E87.20 Acidosis, unspecified; J96.11 Chronic respiratory failure with hypoxia; J44.1 Chronic obstructive pulmonary disease with (acute) exacerbation; I50.813 Acute on chronic right heart failure; I27.81 Cor pulmonale (chronic); M35.00 Sjogren syndrome, unspecified; I69.931 Monoplegia of upper limb following unspecified cerebrovascular disease affecting right dominant side; M71.22 Synovial cyst of popliteal space [Baker], left knee; M16.0 Bilateral primary osteoarthritis of hip; I25.2 Old myocardial infarction; Z66 Do not resuscitate; Z99.81 Dependence on supplemental oxygen; Z87.440 Personal history of urinary (tract) infections; Z87.01 Personal history of pneumonia (recurrent); Z20.822 Contact with and (suspected) exposure to COVID-19
CPT/HCPCS: J1650; Q9967

== ENCOUNTER 2023-09-02 03:40 | Emergency (ER) | payer MEDICARE, OTHER ==
[~2023-09-02] VITALS: Ht 157.5 cm; Wt 53.0 kg
[2023-09-02] VITALS (25 sets, daily range): BP systolic 99–155; BP diastolic 69–101
[2023-09-02 04:57] LABS: BASO% 0.3 % (0-3); HEMOGLOBIN 15.8 g/dl (12.0-16.0); IMMATURE GRANULOCYTES 0.2 % (0.0-5.0); LYMPH% 29.7 % (15-41); MEAN CORPUSCULAR HGB 33.7 pG CALC (26.0-32.0); MEAN CORPUSCULAR HGB CONC 32.7 g/dL CAL (32.0-36.0); MONO% 5.6 % (2-13); NEUT# 4.15 thou/uL (2.00-7.15); NEUT% 62.2 % (42-76); RED BLOOD COUNT 4.69 mill/uL (4.20-5.60)
[2023-09-02 05:06] LABS: ALBUMIN 3.9 g/dL (3.2-5.0); ANION GAP 12 (6-22 (CALC)); BUN 26 mg/dL (8-23); BUN/CREATININE RATIO 40 (12-20 (CALC)); CARBON DIOXIDE 24 mmol/l (22-30); CHLORIDE 106 mmol/l (95-108); CREATININE 0.7 mg/dL (0.5-1.0); GFR FOR AFR.AMER. > 60 ML/MIN (>=60 (CALC)); GFR OTHER RACES > 60 ML/MIN (>=60 (CALC)); POTASSIUM 4.1 mmol/l (3.5-5.1); SGOT/AST 50 u/l (9-36); SODIUM 138 mmol/l (137-146); TOTAL PROTEIN 7.4 g/dL (6.3-8.2)
[2023-09-02 05:10] LABS: ALKALINE PHOSPHATASE 108 u/l (38-126); BILIRUBIN, TOTAL 1.8 mg/dL (0.02-1.3); HEMATOCRIT 48.3 % (37.0-47.0)
== END 2023-09-02 10:23 ==
LOC: ED 03:40
PROVIDERS: Family Medicine
DX: M79.652 Pain in left thigh (principal); I70.202 Unspecified atherosclerosis of native arteries of extremities, left leg; M71.22 Synovial cyst of popliteal space [Baker], left knee; I11.0 Hypertensive heart disease with heart failure; I50.9 Heart failure, unspecified; I25.2 Old myocardial infarction; Z86.73 Personal history of transient ischemic attack (TIA), and cerebral infarction without residual deficits
CPT/HCPCS: Q9967

== ENCOUNTER 2023-09-06 19:14 | Observation (INO) | payer MEDICARE, OTHER ==
[~2023-09-06] VITALS: Ht 157.5 cm; Wt 68.0 kg
[2023-09-06 20:35] VITALS: BP 98/71
[2023-09-06 20:43] LABS: BASO% 0.2 % (0-3); EOS% 0.1 % (0-8); HEMATOCRIT 48.2 % (37.0-47.0); HEMOGLOBIN 15.4 g/dl (12.0-16.0); IMMATURE GRANULOCYTES 0.4 % (0.0-5.0); LYMPH% 19.1 % (15-41); MEAN CELL VOLUME 106.9 fL CALC (80.0-100.0); MEAN CORPUSCULAR HGB 34.1 pG CALC (26.0-32.0); MONO% 5.2 % (2-13); NEUT# 6.87 thou/uL (2.00-7.15); RED BLOOD COUNT 4.51 mill/uL (4.20-5.60); RED CELL DISTRI WIDTH 15.1 % (11.5-15.5)
[2023-09-06 21:00] VITALS: BP 106/59
[2023-09-06 21:17] LABS: ALBUMIN 3.6 g/dL (3.2-5.0); ALKALINE PHOSPHATASE 96 u/l (38-126); BILIRUBIN, TOTAL 2.1 mg/dL (0.02-1.3); BUN 39 mg/dL (8-23); BUN/CREATININE RATIO 42 (12-20 (CALC)); CHLORIDE 106 mmol/l (95-108); CREATININE 0.9 mg/dL (0.5-1.0); GFR FOR AFR.AMER. > 60 ML/MIN (>=60 (CALC)); GFR OTHER RACES > 60 ML/MIN (>=60 (CALC)); SGOT/AST 54 u/l (9-36); SODIUM 136 mmol/l (137-146); TOTAL PROTEIN 7.2 g/dL (6.3-8.2)
[2023-09-06 21:18] LABS: ANION GAP 16 (6-22 (CALC)); CARBON DIOXIDE 18 mmol/l (22-30)
[2023-09-06 22:00] VITALS: BP 98/49
[2023-09-06] MEDS ORDERED: BYSTOLIC10 MG PO (22:11)
[2023-09-06 23:01] VITALS: BP 111/79
[2023-09-07] VITALS (41 sets, daily range): BP systolic 41–164; BP diastolic 13–139
[2023-09-07 08:07] LABS: URINE BLOOD DIPSTICK Negative (NEGATIVE); URINE GLUCOSE - DIPSTICK Negative (NEGATIVE); URINE KETONE Trace mg/dL (NEGATIVE); URINE LEUK ESTERASE Negative (NEGATIVE); URINE NITRITE - DIPSTICK Negative (Negative); URINE PROTEIN - DIPSTICK >=300 mg/dL (NEG-TRACE); URINE SPECIFIC GRAVITY >=1.030
[2023-09-07 08:08] LABS: URINE COLOR Dark yellow
[2023-09-07 08:09] LABS: URINE EPITHELIAL CELLS MODERATE EPI/hpf (0-FEW); URINE MUCUS MODERATE hpf (NONE-FEW)
[2023-09-07] MEDS ORDERED: D350 MCG PO (08:10)
[2023-09-07] MEDS ORDERED: [UNRECOGNIZED DRUG - SUPPLY] IO (08:12)
[2023-09-07] MEDS ORDERED: FAMOTIDINE20 M1 PO (08:14)
[2023-09-07] MEDS ORDERED: BYSTOLIC20 MG PO (08:15)
[2023-09-07] MEDS ORDERED: PHARBETOL325 MG PO (08:18)
[2023-09-07] MEDS ORDERED: HYDROCO/APAP1 TA9 PO (08:19)
== END 2023-09-07 10:10 | disposition expired ==
LOC: ED 19:14 → ED-I 09-07 08:00 → ED 09-07 08:22 → ED-I 09-07 08:23
PROVIDERS: Family Medicine; ADMIT Student in an Organized Health Care Education/Training Program; ATTEND Student in an Organized Health Care Education/Training Program
PROC: 06HY33Z Insertion of Infusion Device into Lower Vein, Percutaneous Approach (ICD-10-PCS; principal; 2023-09-07)
PROC: 3E043XZ Introduction of Vasopressor into Central Vein, Percutaneous Approach (ICD-10-PCS; 2023-09-07)
DX: R55 Syncope and collapse (principal); R00.1 Bradycardia, unspecified; I95.9 Hypotension, unspecified; I11.0 Hypertensive heart disease with heart failure; I50.32 Chronic diastolic (congestive) heart failure; J44.9 Chronic obstructive pulmonary disease, unspecified; I25.2 Old myocardial infarction; M35.00 Sjogren syndrome, unspecified; Z86.73 Personal history of transient ischemic attack (TIA), and cerebral infarction without residual deficits; Z66 Do not resuscitate